=== PATIENT | male | born 1950 | race Caucasian/White ===

== ENCOUNTER 2021-05-08 10:43 | Emergency (ER) | payer MEDICARE, BC ==
[~2021-05-08] VITALS: Ht 175.3 cm; Wt 91.2 kg
--- NOTE | 2021-05-08 10:55 | NUR ---
TO ER BED 1, C/O BACK PAIN THAT STARTED YEARS AGO BUT WORSE STARTED THIS TUESDAY WHEN HE LIFTED A HEAVY STUFF, ATTACHED TO MONITOR, MD AT BEDSIDE
[2021-05-08] MEDS ORDERED: HYDROMORPHONE 1 MG/1 ML DISP.SYRIN ONE (11:05)
[2021-05-08] MEDS: HYDROMORPHONE 1 MG/1 ML DISP.SYRIN IM ONE (11:10)
[2021-05-08] MEDS ORDERED: KETOROLAC TROMETHAMINE INJ 30 MG/ML VIAL ONE (11:33)
[2021-05-08] MEDS ORDERED: ONDANSETRON 4 MG TAB.RAPDIS ONE (11:34)
[2021-05-08] MEDS: KETOROLAC TROMETHAMINE INJ 60 MG/2 ML VIAL IM ONE (11:42)
[2021-05-08] MEDS: ONDANSETRON 4 MG TAB.RAPDIS PO ONE (11:43)
--- NOTE | 2021-05-08 12:38 | NUR ---
WENT TO MRI
--- NOTE | 2021-05-08 13:09 | NUR ---
BACK FROM MRI
[2021-05-08 13:21] VITALS: BP 152/60
[2021-05-08] MEDS ORDERED: CYCL10TA9 PO ×2 (14:13→14:18)
[2021-05-08] MEDS ORDERED: METH4TAB3 PO ×2 (14:13→14:18)
[2021-05-08] MEDS ORDERED: TRAM50TA2 PO (14:18)
== END 2021-05-08 14:25 | disposition home or self-care (01) ==
LOC: ER 10:53
DX: M51.36 Other intervertebral disc degeneration, lumbar region (principal); M54.5 Low back pain; R53.1 Weakness; M19.90 Unspecified osteoarthritis, unspecified site
CPT/HCPCS: 72148; 96372 ×2; 99284; J1170; J1885; Q0162

== ENCOUNTER 2022-02-24 09:50 | Emergency (ER) | payer MEDICARE, BC ==
[~2022-02-24] VITALS: Ht 175.3 cm; Wt 86.2 kg
[2022-02-24 09:50] VITALS: BP 134/71
[~2022-02-24 09:50] MED LIST: CYCL10TA9 PO; METH4TAB3 PO; TRAM50TA2 PO
--- NOTE | 2022-02-24 09:55 | NUR ---
The patient bibs for wound check on right plantar foot. Rates pain 3/10. Will continue to monitor the patient.
[2022-02-24] MEDS ORDERED: LIDOCAINE 2% 20 ML MDV ONE (10:29)
[2022-02-24] MEDS ORDERED: LIDOCAINE 2% 20 ML MDV TP ONE (10:30)
--- NOTE | 2022-02-24 10:30 | NUR ---
LIDOCAINE 2% [address] ON[address] LOUIS. THE ORDER IS READ BACK, VERIFIED. NOTED AND CARRIED OUT.
--- NOTE | 2022-02-24 10:49 | NUR ---
X-RAY TECH AT THE BEDSIDE
== END 2022-02-24 13:29 | disposition home or self-care (01) ==
LOC: ER 09:55
DX: S90.851A Superficial foreign body, right foot, initial encounter (principal); M19.90 Unspecified osteoarthritis, unspecified site; F17.200 Nicotine dependence, unspecified, uncomplicated; Z79.899 Other long term (current) drug therapy; X58.XXXA Exposure to other specified factors, initial encounter; Y93.01 Activity, walking, marching and hiking; Y92.89 Other specified places as the place of occurrence of the external cause; Y99.8 Other external cause status
CPT/HCPCS: 10120; 73620; 73630; 99285; A6403 ×2; J3490

== ENCOUNTER 2022-02-24 13:30 | Outpatient (CLI) | payer MEDICARE, BC ==
[2022-02-24] MEDS ORDERED: LIDOCAINE SOLN 4% 50 ML BOTTLE ONE (14:11)
[2022-02-24] MEDS ORDERED: DAKINS HALF STRENGTH (0.25%) 480 ML BOTTLE ONE (14:30)
== END 2022-02-24 23:59 | disposition home or self-care (01) ==
LOC: WOU 13:30
PROVIDERS: ATTEND Podiatrist Foot & Ankle Surgery
DX: S91.341D Puncture wound with foreign body, right foot, subsequent encounter (principal); X58.XXXD Exposure to other specified factors, subsequent encounter
CPT/HCPCS: 87070; 87075; 87077; A6407; G0463

== ENCOUNTER 2022-02-24 14:44 | Outpatient (CLI) | payer MEDICARE, BC ==
[2022-02-24 15:56] LABS: BASOPHILS # (AUTO) 0.1 K/uL (0.0-0.2); BASOPHILS % (AUTO) 1.4 % (0.0-2.0); EOSINOPHILS % (AUTO) 4.1 % (0.0-6.0); HEMATOCRIT 44 % (39-51); HEMOGLOBIN 14.7 g/dL (13.5-17.5); LYMPHOCYTES # (AUTO) 1.9 K/uL (0.8-4.8); LYMPHOCYTES % (AUTO) 21.6 % (20.0-44.0); MEAN CORPUSCULAR HGB CONC 33 g/dl (31.0-36.0); MEAN CORPUSCULAR VOLUME 86 fL (80-96); MONOCYTES # (AUTO) 1.1 K/uL (0.1-1.30); MONOCYTES % (AUTO) 12.2 % (2.0-12.0); NEUTROPHILS # (AUTO) 5.4 K/uL (1.8-8.9); NEUTROPHILS % (AUTO) 60.7 % (43.0-81.0); PLATELET COUNT (AUTO) 213 K/uL (150-450); RED BLOOD CELL COUNT(AUTO) 5.15 MIL/uL (4.5-6.0); WHITE BLOOD COUNT (AUTO) 8.9 K/uL (4.3-11.0)
[2022-02-24 16:36] LABS: POTASSIUM 4.1 mmol/L (3.5-5.1)
== END 2022-02-24 23:59 | disposition home or self-care (01) ==
LOC: LAB 14:44
PROVIDERS: ATTEND Podiatrist Foot & Ankle Surgery
DX: S91.341D Puncture wound with foreign body, right foot, subsequent encounter (principal); X58.XXXD Exposure to other specified factors, subsequent encounter; M79.671 Pain in right foot; Z20.822 Contact with and (suspected) exposure to COVID-19
CPT/HCPCS: 36415; 71045; 80048; 85025; 85730; C9803; U0003

== ENCOUNTER 2022-02-26 10:50 | Outpatient (CLI) | payer MEDICARE, BC | END 2022-02-26 23:59 | disposition home or self-care (01) | LOC: WOU 10:50 | PROVIDERS: ATTEND Podiatrist Foot & Ankle Surgery | DX: S91.341D Puncture wound with foreign body, right foot, subsequent encounter (principal); X58.XXXD Exposure to other specified factors, subsequent encounter; M79.671 Pain in right foot | CPT/HCPCS: G0463 ==

== ENCOUNTER 2022-03-02 05:56 | Day surgery (SDC) | payer MEDICARE, BC ==
[~2022-03-02 05:56] MED LIST changes: +ANESTHESIA TRAY IN PYXIS 1 EA TRAY MC ONE
[2022-03-02 06:30] VITALS: BP 118/52
--- NOTE | 2022-03-02 06:30 | NUR ---
RN opening notes Received Pt in the room. Pt is alert and orientedX4. On room air. No SOB. No S/S of distress noted. VS is stable. NPO since last night. inserted IV on LAC# 20 with good blood returned. Pt is going for incision and drainage debriment delayed primary closure removal of foreign body (R) foot with Dr. Powers. Consent is signed by Pt and placed at Pt's chart. Pt's belonging is signed by Pt and placed at Pt's chart. Will continue to monitor.
--- NOTE | 2022-03-02 06:50 | NUR ---
RN notes Pt is going to OR. Picked up by two OR breeding technician.
--- NOTE | 2022-03-02 07:00 | NUR ---
RN notes Report given to am nurse Janna RN for KIKA.
[2022-03-02] MEDS ORDERED: FENTANYL PF 100MCG/2ML AMPUL ONE (07:31)
[2022-03-02] MEDS ORDERED: BUPIVACAINE 0.5 % PF 150 MG/30 ML VIAL ONE (07:34)
[2022-03-02] MEDS ORDERED: LIDOCAINE 1% INJ 50 ML MDV IJ ONE (07:34)
[2022-03-02] MEDS ORDERED: BUPIVACAINE 0.25% 75 MG/30 ML VIAL ONE (07:34)
--- NOTE | 2022-03-02 09:37 | NUR ---
RN MS NOTES RECEIVED PT FROM O.R. NURSE YOJANA VIA BED, PT IS AWAKE, ALERT AND ORIENTED, DENIES PAIN AT THIS TIME, RESPIRATIONS NORMAL, RIGHT FOOT WITH DRESSING, NO BLEEDING NOTED, POST OP ORDERS RECEIVED, NOTED AND CARRIED OUT, VITALS TAKEN AND RECORDED.
[2022-03-02] MEDS ORDERED: HYDROCODONE/APAP 5/325MG TABLET PO PRN (10:00)
[2022-03-02] MEDS ORDERED: ONDANSETRON HCL/PF 4 MG/2 ML VIAL IVP PRN (10:00)
[2022-03-02] MEDS ORDERED: ANESTHESIA TRAY IN PYXIS 1 EA TRAY MC ONE (10:58)
[2022-03-02 12:00] VITALS: BP 140/66
--- NOTE | 2022-03-02 14:30 | NUR ---
RN DISCHARGED NOTES PT IS AWAKE, ALERT AND ORIENTED X 4. DENIES PAIN AND DISCOMFORT AT THIS TIME. ALL VITALS ARE WITHIN NORMAL LEVEL. RIGHT FOOT WITH DRESSING HAS NO BLEEDING NOTED. POST OP ORDERS RECEIVED, NOTED AND CARRIED OUT. DISCHARGED INSTRUCTION GIVEN TO PATIENT AND HE VERBALIZED UNDERSTANDING. IV DISCONNECTED AND TOLERATED WELL, NO SIGNS OF INFILTRATION AND INFLAMMATION. PATIENT IS STABLE TO GO HOME.
== END 2022-03-02 14:35 | disposition home or self-care (01) ==
LOC: DS 05:56 → MED 05:57 → UNDOADMIN 05:57 → UNDODISIN 14:35 → DS 14:35
PROVIDERS: ATTEND Podiatrist Foot & Ankle Surgery
DX: M79.671 Pain in right foot (principal); S91.341A Puncture wound with foreign body, right foot, initial encounter; I10 Essential (primary) hypertension; E78.5 Hyperlipidemia, unspecified; X58.XXXA Exposure to other specified factors, initial encounter; Y93.89 Activity, other specified; Y92.89 Other specified places as the place of occurrence of the external cause; Y99.8 Other external cause status; Z98.890 Other specified postprocedural states; Z79.899 Other long term (current) drug therapy
CPT/HCPCS: 10120; 73630; 87070; 87075; J0330; J0690; J1100; J2405; J2704; J3010; J3490 ×4; J7030; G0378

== ENCOUNTER 2022-03-09 09:05 | Outpatient (CLI) | payer MEDICARE, BC ==
[~2022-03-09 09:05] MED LIST changes: -ANESTHESIA TRAY IN PYXIS 1 EA TRAY MC ONE
== END 2022-03-09 23:59 | disposition home or self-care (01) ==
LOC: WOU 09:05
PROVIDERS: ATTEND Podiatrist Foot & Ankle Surgery
DX: S91.341D Puncture wound with foreign body, right foot, subsequent encounter (principal); X58.XXXD Exposure to other specified factors, subsequent encounter; M79.671 Pain in right foot
CPT/HCPCS: G0463

== ENCOUNTER 2022-03-16 09:05 | Outpatient (CLI) | payer MEDICARE, BC ==
[2022-03-16] MEDS ORDERED: LIDOCAINE 2% JEL 5 ML TUBE ONE (09:29)
== END 2022-03-16 23:59 | disposition home or self-care (01) ==
LOC: WOU 09:05
PROVIDERS: ATTEND Podiatrist Foot & Ankle Surgery
DX: S91.341D Puncture wound with foreign body, right foot, subsequent encounter (principal); X58.XXXD Exposure to other specified factors, subsequent encounter; M79.671 Pain in right foot
CPT/HCPCS: G0463

== ENCOUNTER 2022-03-30 09:10 | Outpatient (CLI) | payer MEDICARE, BC | END 2022-03-30 23:59 | disposition home or self-care (01) | LOC: WOU 09:10 | PROVIDERS: ATTEND Podiatrist Foot & Ankle Surgery | DX: S91.341D Puncture wound with foreign body, right foot, subsequent encounter (principal); X58.XXXD Exposure to other specified factors, subsequent encounter; M79.671 Pain in right foot | CPT/HCPCS: G0463 ==

== ENCOUNTER 2022-04-13 09:05 | Outpatient (CLI) | payer MEDICARE, BC | END 2022-04-13 23:59 | disposition home or self-care (01) | LOC: WOU 09:05 | PROVIDERS: ATTEND Podiatrist Foot & Ankle Surgery | DX: S91.341D Puncture wound with foreign body, right foot, subsequent encounter (principal); X58.XXXD Exposure to other specified factors, subsequent encounter; M79.671 Pain in right foot | CPT/HCPCS: G0463 ==

== ENCOUNTER 2023-02-15 11:12 | Outpatient (CLI) | payer MEDICARE, BC ==
[2023-02-15] MEDS ORDERED: LIDOCAINE 2%-EPI 1:100,000 30 ML VIAL ONE (11:59)
== END 2023-02-15 23:59 | disposition home or self-care (01) ==
LOC: WOU 11:12
PROVIDERS: ATTEND Podiatrist Foot & Ankle Surgery
DX: L43.9 Lichen planus, unspecified (principal); L97.312 Non-pressure chronic ulcer of right ankle with fat layer exposed; L84 Corns and callosities
CPT/HCPCS: 11102; 88312; 88305; J3490; A6209 ×2

== ENCOUNTER 2023-02-18 08:35 | Outpatient (CLI) | payer MEDICARE, BC ==
[2023-02-18] MEDS ORDERED: COLLAGENASE 5 GM TUBE UD TP ONE (09:03)
== END 2023-02-18 23:59 | disposition home or self-care (01) ==
LOC: WOU 08:35
PROVIDERS: ATTEND Podiatrist Foot & Ankle Surgery
DX: L43.9 Lichen planus, unspecified (principal); L97.312 Non-pressure chronic ulcer of right ankle with fat layer exposed; Z87.891 Personal history of nicotine dependence
CPT/HCPCS: G0463

== ENCOUNTER 2023-02-25 09:33 | Outpatient (CLI) | payer MEDICARE, BC | END 2023-02-25 23:59 | disposition home or self-care (01) | LOC: WOU 09:33 | PROVIDERS: ATTEND Podiatrist Foot & Ankle Surgery | DX: L43.9 Lichen planus, unspecified (principal) | CPT/HCPCS: G0463 ==

== ENCOUNTER 2023-03-25 13:10 | Outpatient (CLI) | payer MEDICARE, BC | END 2023-03-25 23:59 | disposition home or self-care (01) | LOC: WOU 13:10 | PROVIDERS: ATTEND Podiatrist Foot & Ankle Surgery | DX: L43.9 Lichen planus, unspecified (principal) | CPT/HCPCS: G0463 ==

== ENCOUNTER 2024-04-03 13:20 | Inpatient (IN) | payer MEDICARE, BC ==
[~2024-04-03] VITALS: Ht 175.3 cm; Wt 86.2 kg
[2024-04-03 14:06] LABS: BASOPHILS # (AUTO) 0.1 K/uL (0.0-0.2); BASOPHILS % (AUTO) 0.4 % (0.0-2.0); EOSINOPHILS # (AUTO) 0.1 K/uL (0.0-0.7); EOSINOPHILS % (AUTO) 0.7 % (0.0-6.0); HEMATOCRIT 42 % (39-51); HEMOGLOBIN 13.9 g/dL (13.5-17.5); LYMPHOCYTES # (AUTO) 2.3 K/uL (0.8-4.8); LYMPHOCYTES % (AUTO) 13.3 % (20.0-44.0); MEAN CORPUSCULAR HEMOGLOBIN 29 PG (26.0-33.0); MEAN CORPUSCULAR HGB CONC 33 g/dl (31.0-36.0); MEAN CORPUSCULAR VOLUME 87 fL (80-96); MONOCYTES % (AUTO) 11.6 % (2.0-12.0); NEUTROPHILS # (AUTO) 12.6 K/uL (1.8-8.9); PLATELET COUNT (AUTO) 170 K/uL (150-450); RED BLOOD CELL COUNT(AUTO) 4.84 MIL/uL (4.5-6.0); RED CELL DISTRIBUTION WIDTH 13.6 % (11.5-15.0)
[2024-04-03 14:20] LABS: ALANINE AMINOTRANSFERASE 49 U/L (12-78); ALBUMIN 3.8 g/dL (3.4-5.0); ALKALINE PHOSPHATASE 76 U/L (46-116); ASPARTATE AMINOTRANSFERASE 43 U/L (15-37); BILIRUBIN,DIRECT 0.3 mg/dL (0.0-0.2); BILIRUBIN,TOTAL 0.8 mg/dL (0.2-1.0); CALCIUM, SERUM 9.4 mg/dL (8.5-10.1); CARBON DIOXIDE 21 mmol/L (21-32); CHLORIDE 101 mmol/L (98-107); CREATININE 0.9 mg/dL (0.6-1.3); GLUCOSE 122 mg/dL (74-106); POTASSIUM 3.6 mmol/L (3.5-5.1); SODIUM SERUM 136 mmol/L (136-145); TOTAL PROTEIN, SERUM 7.1 g/dL (6.4-8.2); UREA NITROGEN, BLOOD 20 mg/dL (7-18)
[2024-04-03 14:21] LABS: INR 0.99 (0.91-1.10); PROTHROMBIN TIME 10.5 SECS (9.2-11.1)
[2024-04-03] MEDS ORDERED: CO Q-10 PO (15:10)
[2024-04-03] MEDS ORDERED: CHOL100062 PO (15:10)
[2024-04-03] MEDS ORDERED: RIVA10TA PO (15:10)
[2024-04-03] MEDS ORDERED: COLC0.6C3 PO (15:10)
[2024-04-03] MEDS ORDERED: FISH OIL PO (15:10)
[2024-04-03] MEDS ORDERED: ROSU10TA29 PO (15:10)
[2024-04-03] MEDS ORDERED: ASPIRIN 325 MG TABLET ONE (15:22)
[2024-04-03] MEDS: MORPHINE SULFATE INJ 2 MG/ML DISP.SYRIN IV ONE (15:24)
[2024-04-03] MEDS: ASPIRIN 325 MG TABLET PO ONE (15:24)
[2024-04-03] MEDS ORDERED: ONDANSETRON HCL/PF 4 MG/2 ML VIAL IVP PRN (17:00)
[2024-04-03] MEDS ORDERED: ACETAMINOPHEN 325 MG TABLET PO PRN (17:00)
[2024-04-03] MEDS ORDERED: MAGNESIUM HYDROXIDE 30 ML UDC PO PRN (17:00)
[2024-04-03] MEDS ORDERED: Z GUARD REMEDY 4 OZ OINT TP PRN (17:00)
[2024-04-03] MEDS ORDERED: TEMAZEPAM 15 MG CAPSULE PO PRN (17:00)
[2024-04-03] MEDS ORDERED: MAG HYDROX/AL HYDROX/SIMETH 30 ML UDC PO PRN (17:00)
[2024-04-03] MEDS: IV NS 0.9% 1,000 ML IV PRN (17:24)
[2024-04-03] MEDS ORDERED: IV NS 0.9% 1,000 ML BAG IV PRN (17:30)
[2024-04-03] MEDS: COLCHICINE 0.6 MG TABLET PO SCH (18:04)
[2024-04-03] MEDS: RIVAROXABAN 10 MG TABLET PO SCH (18:47)
[2024-04-03] MEDS: HYDROCODONE/APAP 5/325MG TABLET PO PRN (19:13)
[2024-04-03 20:00] VITALS: BP 130/69; TEMP 97.7; O2SAT 98
[2024-04-04] VITALS: BP 156/71; TEMP 98; O2SAT 98
[2024-04-04 04:00] VITALS: BP 151/82; TEMP 98.1; O2SAT 99
[2024-04-04 06:41] LABS: BASOPHILS # (AUTO) 0.1 K/uL (0.0-0.2); BASOPHILS % (AUTO) 0.4 % (0.0-2.0); EOSINOPHILS % (AUTO) 0.2 % (0.0-6.0); HEMATOCRIT 39 % (39-51); HEMOGLOBIN 12.9 g/dL (13.5-17.5); LYMPHOCYTES # (AUTO) 1.7 K/uL (0.8-4.8); LYMPHOCYTES % (AUTO) 14.1 % (20.0-44.0); MEAN CORPUSCULAR HEMOGLOBIN 29 PG (26.0-33.0); MEAN CORPUSCULAR HGB CONC 33 g/dl (31.0-36.0); MEAN CORPUSCULAR VOLUME 87 fL (80-96); MONOCYTES # (AUTO) 1.8 K/uL (0.1-1.30); MONOCYTES % (AUTO) 14.9 % (2.0-12.0); NEUTROPHILS # (AUTO) 8.7 K/uL (1.8-8.9); NEUTROPHILS % (AUTO) 70.4 % (43.0-81.0); PLATELET COUNT (AUTO) 142 K/uL (150-450); RED BLOOD CELL COUNT(AUTO) 4.44 MIL/uL (4.5-6.0); RED CELL DISTRIBUTION WIDTH 13.5 % (11.5-15.0); WHITE BLOOD COUNT (AUTO) 12.4 K/uL (4.3-11.0)
[2024-04-04 07:03] LABS: CALCIUM, SERUM 9.2 mg/dL (8.5-10.1); CREATININE 0.7 mg/dL (0.6-1.3); MAGNESIUM 2.3 mg/dL (1.8-2.4); PHOSPHORUS 2.3 mg/dL (2.5-4.9); POTASSIUM 4.1 mmol/L (3.5-5.1)
[2024-04-04 07:17] LABS: THYROID STIMULATING HORMONE 1.64 uIU/mL (0.358-3.74)
[2024-04-04 08:00] VITALS: BP 161/73; TEMP 99.9; O2SAT 96
[2024-04-04] MEDS: ATORVASTATIN 10 MG TABLET PO SCH (08:07)
[2024-04-04] MEDS: NEUTRA PHOS 1 POWD.PACKET PO SCH (08:07)
[2024-04-04] MEDS: PANTOPRAZOLE 40 MG TABLET.DR PO SCH (08:07)
[2024-04-04] MEDS: CHOLECALCIFEROL 1,000 UNIT TABLET (VIT D3) PO SCH (08:07)
[2024-04-04] MEDS ORDERED: RIVAROXABAN 10 MG TABLET PO SCH (09:00)
== END 2024-04-04 10:35 | disposition home or self-care (01) | DRG 313 ==
LOC: ER 13:25 → TELE1 16:36
PROVIDERS: ADMIT Nurse Practitioner Acute Care; ATTEND Nurse Practitioner Acute Care
DX: R07.89 Other chest pain (principal); I48.20 Chronic atrial fibrillation, unspecified; G47.33 Obstructive sleep apnea (adult) (pediatric); R79.89 Other specified abnormal findings of blood chemistry; E78.5 Hyperlipidemia, unspecified; Z79.01 Long term (current) use of anticoagulants; I08.0 Rheumatic disorders of both mitral and aortic valves; Y84.8 Other medical procedures as the cause of abnormal reaction of the patient, or of later complication, without mention of misadventure at the time of the procedure; Y71.8 Miscellaneous cardiovascular devices associated with adverse incidents, not elsewhere classified; Y92.89 Other specified places as the place of occurrence of the external cause
CPT/HCPCS: 36415; 71045-TC; 80048-TC; 80061-TC; 80076-TC; 83735-TC; 84100-TC; 84443-TC; 84484-TC; 85025-TC; 85730-TC; 93307-TC; A4223; G0378; J7030

== ENCOUNTER 2025-02-04 11:01 | Emergency (ER) | payer MEDICARE, BC ==
[~2025-02-04] VITALS: Ht 175.3 cm; Wt 83.9 kg
[~2025-02-04 11:01] MED LIST changes: +CHOL100062 PO; +CO Q-10 PO; +COLC0.6C3 PO; -CYCL10TA9 PO; +FISH OIL PO; -METH4TAB3 PO; +RIVA10TA PO; +ROSU10TA29 PO; -TRAM50TA2 PO
[2025-02-04 11:04] VITALS: BP 138/102; TEMP 98.3
[2025-02-04] MEDS ORDERED: AMOX-430 PO (11:35)
[2025-02-04] MEDS ORDERED: TDAP [DIPH/PERTUSSIS/TET] 0.5 ML VIAL IM ONE (11:38)
[2025-02-04] MEDS: TDAP [DIPH/PERTUSSIS/TET] 0.5 ML VIAL IM ONE (11:43)
[2025-02-04 11:50] VITALS: O2SAT 99
== END 2025-02-04 14:18 | disposition home or self-care (01) ==
LOC: ER 11:04
DX: S60.311A Abrasion of right thumb, initial encounter (principal); I10 Essential (primary) hypertension; F17.200 Nicotine dependence, unspecified, uncomplicated; M19.90 Unspecified osteoarthritis, unspecified site; Z79.01 Long term (current) use of anticoagulants; Z79.899 Other long term (current) drug therapy; W55.03XA Scratched by cat, initial encounter; Y93.89 Activity, other specified; Y92.89 Other specified places as the place of occurrence of the external cause; Y99.8 Other external cause status
CPT/HCPCS: 90715